=== PATIENT | female | born 1995 | race Caucasian/White ===

== ENCOUNTER → 2016-08-18 | Outpatient (REF) | payer OTHER | LOC: M SFHCWAGY 17:00 | PROVIDERS: ATTEND Nurse Practitioner Family | DX: Z01.419 Encounter for gynecological examination (general) (routine) without abnormal findings (principal) ==

== ENCOUNTER → 2016-08-19 | Outpatient (REF) | payer OTHER | LOC: M LAB REF 15:45 | PROVIDERS: ATTEND Physician Assistant | DX: J11.00 Influenza due to unidentified influenza virus with unspecified type of pneumonia (principal) ==

== ENCOUNTER → 2017-02-13 | Outpatient (REF) | payer OTHER | LOC: M SFHCWAGY 14:24 | PROVIDERS: ATTEND Family Medicine | DX: Z12.4 Encounter for screening for malignant neoplasm of cervix (principal); Z11.3 Encounter for screening for infections with a predominantly sexual mode of transmission ==

== ENCOUNTER → 2017-02-16 | Outpatient (CLI) | payer OTHER ==
[2017-02-16 17:44] LABS: MEAN CORPUSCULAR HEMOGLOBIN 31.5 pg (27.0-33.0); MEAN CORPUSCULAR VOLUME 95.4 fl (80.0-96.0); RED CELL DISTRIBUTION WIDTH 12.3 % (11.5-14.5)
[2017-02-16 18:25] LABS: ALBUMIN 3.9 GM/DL (3.2-5.2); ALBUMIN/GLOBULIN RATIO 1.26 (1.00-1.93); ALKALINE PHOSPHATASE 67 U/L (45-117); ALT/SGPT 20 U/L (12-78); ANION GAP 7 MEQ/L (8-16); AST/SGOT 10 U/L (15-37); BILIRUBIN,TOTAL 0.3 MG/DL (0.2-1.0); BLOOD UREA NITROGEN 15 MG/DL (7-18); CALCIUM LEVEL 9.1 MG/DL (8.5-10.1); CARBON DIOXIDE LEVEL 26 MEQ/L (21-32); CHLORIDE LEVEL 107 MEQ/L (98-107); CHOLESTEROL LEVEL 150 MG/DL (<200); CREATININE FOR GFR 0.72 MG/DL (0.55-1.02); GLOMERULAR FILTRATION RATE > 60.0 (>60); GLUCOSE, FASTING 87 MG/DL (70-105); POTASSIUM SERUM 4.5 MEQ/L (3.5-5.1); SODIUM LEVEL 140 MEQ/L (136-145); TRIGLYCERIDES LEVEL 39 MG/DL (<150)
== END ==
LOC: M WUC 11:15
PROVIDERS: ATTEND Nurse Practitioner Family
DX: J30.89 Other allergic rhinitis (principal); Z13.1 Encounter for screening for diabetes mellitus; Z13.220 Encounter for screening for lipoid disorders; E55.9 Vitamin D deficiency, unspecified

== ENCOUNTER → 2017-06-10 | Outpatient (REF) | payer OTHER | LOC: M SFHCLERA 13:36 | PROVIDERS: ATTEND Nurse Practitioner Family | DX: R50.9 Fever, unspecified (principal) ==

== ENCOUNTER → 2018-04-09 | Outpatient (REF) | payer OTHER ==
[2018-04-09 17:39] LABS: CHLAMYDIA DNA AMPLIFICATION NEGATIVE (NEGATIVE); GC DNA AMPLIFICATION NEGATIVE (NEGATIVE)
== END ==
LOC: M SFHCWAGY 12:06
DX: Z12.4 Encounter for screening for malignant neoplasm of cervix (principal)

== ENCOUNTER → 2018-04-22 | Outpatient (CLI) | payer OTHER | LOC: M WHC 10:54 | DX: R10.2 Pelvic and perineal pain (principal) | CPT/HCPCS: 76830 ==

== ENCOUNTER → 2018-08-19 | Outpatient (REF) | payer OTHER | LOC: M SFHCLERA 16:44 | PROVIDERS: ATTEND Nurse Practitioner Family | DX: J02.9 Acute pharyngitis, unspecified (principal) ==

== ENCOUNTER → 2019-04-18 | Outpatient (REF) | payer OTHER ==
[~2019-04-18] MED LIST: FLUTISP NARES; OXYC1TAB23 PO
[2019-04-18 18:22] LABS: CHLAMYDIA DNA AMPLIFICATION NEGATIVE (NEGATIVE); GC DNA AMPLIFICATION NEGATIVE (NEGATIVE)
[2019-04-20 14:52] LABS: HPV HYBRID CAPTURE II Negative (Negative)
== END ==
LOC: M SFHCWAGY 11:06
PROVIDERS: ATTEND Nurse Practitioner Family
DX: Z12.4 Encounter for screening for malignant neoplasm of cervix (principal); Z11.3 Encounter for screening for infections with a predominantly sexual mode of transmission; R87.610 Atypical squamous cells of undetermined significance on cytologic smear of cervix (ASC-US)

== ENCOUNTER → 2019-04-25 | Outpatient (REF) | payer OTHER ==
[2019-04-25 18:31] LABS: ALT/SGPT 23 U/L (12-78); BILIRUBIN,TOTAL 0.3 MG/DL (0.2-1.0); BLOOD UREA NITROGEN 19 MG/DL (7-18); CALCIUM LEVEL 8.8 MG/DL (8.5-10.1); CARBON DIOXIDE LEVEL 28 MEQ/L (21-32); CHLORIDE LEVEL 106 MEQ/L (98-107); CHOLESTEROL LEVEL 151 MG/DL (<200); CHOLESTEROL RISK RATIO 2.559 (<5); CREATININE FOR GFR 0.93 MG/DL (0.55-1.30); FREE T4 0.85 NG/DL (0.76-1.46); GLOMERULAR FILTRATION RATE > 60.0 (>60); GLUCOSE, FASTING 78 MG/DL (70-100); HDL CHOLESTEROL 59 MG/DL (>40); LDL CHOLESTEROL 74 MG/DL (<100); NON-HDL-C 92 MG/DL; POTASSIUM SERUM 4.2 MEQ/L (3.5-5.1); SODIUM LEVEL 140 MEQ/L (136-145); THYROID STIMULATING HORMONE 0.595 uIU/ML (0.358-3.740); TOTAL PROTEIN 7.2 GM/DL (6.4-8.2); TRIGLYCERIDES LEVEL 92 MG/DL (<150)
[2019-04-25 18:33] LABS: PTH INTACT 28.8 PG/ML (18.5-88.0); TOTAL 25(OH) VITAMIN D 18.6 NG/ML (30.0-100.0)
[2019-04-25 18:35] LABS: BASO % 0.4 % (0.0-1.0); EOS # 0.3 10^3/uL (0.0-0.5); EOS % 3.1 % (0.0-3.0); HEMATOCRIT 41.4 % (36.0-47.0); HEMOGLOBIN 13.1 g/dl (12.0-15.5); LYMPH # 2.4 10^3/uL (1.5-5.0); LYMPH % 26.9 % (24.0-44.0); MEAN CORPUSCULAR HEMOGLOBIN 30.5 pg (27.0-33.0); MEAN CORPUSCULAR HGB CONC 31.6 g/dl (32.0-36.5); MEAN CORPUSCULAR VOLUME 96.5 fl (80.0-96.0); MONO # 0.6 10^3/uL (0.0-0.8); NEUTROPHILS # 5.6 10^3/uL (1.5-8.5); NEUTROPHILS % 62.3 % (36.0-66.0); PLATELET COUNT, AUTOMATED 287 10^3/uL (150-450); RED BLOOD COUNT 4.29 10^6/uL (4.00-5.40)
== END ==
LOC: M SFHCPLAZ 15:13
PROVIDERS: ATTEND Physician Assistant Medical
DX: Z13.220 Encounter for screening for lipoid disorders (principal); J30.89 Other allergic rhinitis; E55.9 Vitamin D deficiency, unspecified; F41.1 Generalized anxiety disorder

== ENCOUNTER → 2019-05-09 | Outpatient (REF) | payer OTHER | LOC: M SFHCWAGY 10:12 | PROVIDERS: ATTEND Nurse Practitioner Family | DX: O20.9 Hemorrhage in early pregnancy, unspecified (principal) ==

== ENCOUNTER 2019-05-10 11:54 | Day surgery (SDC) | payer OTHER ==
[~2019-05-10] VITALS: Ht 152.4 cm; Wt 49.1 kg
[2019-05-10] MEDS ORDERED: FLUTISP NARES (12:00)
[2019-05-10] MEDS ORDERED: ONDANSETRON 4 MG ORAL DISINTEGRATING TAB (Q0162 PER 1MG) PO ONE (12:45)
[2019-05-10] MEDS ORDERED: NORCO, ANEXSIA 5/325MG TABLET (HYDROcodone/ACETAMINOPHEN) PO ONE (12:45)
[2019-05-10 13:12] LABS: BASO % 0.3 % (0.0-1.0); EOS # 0.2 10^3/uL (0.0-0.5); EOS % 1.8 % (0.0-3.0); HEMOGLOBIN 12.7 g/dl (12.0-15.5); LYMPH # 1.5 10^3/uL (1.5-5.0); LYMPH % 15.9 % (24.0-44.0); MEAN CORPUSCULAR HEMOGLOBIN 31.5 pg (27.0-33.0); MEAN CORPUSCULAR HGB CONC 33.4 g/dl (32.0-36.5); MEAN CORPUSCULAR VOLUME 94.3 fl (80.0-96.0); MONO # 0.7 10^3/uL (0.0-0.8); MONO % 7.4 % (0.0-5.0); NEUTROPHILS # 6.9 10^3/uL (1.5-8.5); NEUTROPHILS % 74.3 % (36.0-66.0); PLATELET COUNT, AUTOMATED 277 10^3/uL (150-450); RED BLOOD COUNT 4.03 10^6/uL (4.00-5.40); WHITE BLOOD COUNT 9.3 10^3/uL (4.0-10.0)
[2019-05-10 13:42] LABS: BLOOD UREA NITROGEN 17 MG/DL (7-18); CALCIUM LEVEL 8.9 MG/DL (8.5-10.1); CARBON DIOXIDE LEVEL 25 MEQ/L (21-32); CHLORIDE LEVEL 106 MEQ/L (98-107); CREATININE FOR GFR 0.68 MG/DL (0.55-1.30); GLOMERULAR FILTRATION RATE > 60.0 (>60); GLUCOSE, FASTING 108 MG/DL (70-100); HCG, SERUM QUANTITATIVE 466 MIU/ML; POTASSIUM SERUM 3.4 MEQ/L (3.5-5.1); SODIUM LEVEL 139 MEQ/L (136-145)
[2019-05-10] MEDS ORDERED: METOCLOPRAMIDE 10 MG TAB PO ONE (13:45)
[2019-05-10] MEDS ORDERED: SILVER NITRATE APPLICATOR As Ordered ONE (14:08)
[2019-05-10] MEDS ORDERED: LIDOCAINE 2% INJ 100 MG/5 ML SDV (FOR ANES.) As Ordered ONE (14:11)
[2019-05-10] MEDS ORDERED: PROPOFOL 200 MG/20 ML VIAL As Ordered ONE (14:11)
[2019-05-10] MEDS ORDERED: SUCCINYLCHOLINE 100 MG/5 ML SYRINGE (J0330) As Ordered ONE (14:11)
[2019-05-10] MEDS ORDERED: ROCURONIUM BROMIDE 50 MG/5 ML VIAL As Ordered ONE (14:11)
[2019-05-10] MEDS ORDERED: fentaNYL 250 MCG/5 ML INJECTION (J3010) As Ordered ONE (14:15)
[2019-05-10] MEDS ORDERED: dexameTHASONE 4 MG/ML 1ML VIAL (J1100) As Ordered ONE (14:44)
[2019-05-10] MEDS ORDERED: SUGAMMADEX SODIUM 500 MG/5 ML VIAL (BRIDION) As Ordered ONE (14:57)
[2019-05-10] MEDS ORDERED: METHYLENE BLUE 0.5% (5MG/ML) 10 ML AMP (PROVAYBLUE)(Q9968 PER 1MG) As Ordered ONE (15:19)
--- NOTE | 2019-05-10 15:27 | REP ---
FIRST TRIMESTER ULTRASOUND: Real-time sonographic evaluation of pelvis performed utilizing transabdominal and endovaginal technique. Uterus measures 7.8 x 3.2 x 5.3 cm. Uterus is empty. No gestational sac is seen. Endometrial thickness is approximately 7 mm. The right ovary measures 2.3 x 1.0 x 2.1 cm. The left ovary measures 1.8 x 2.1 x 3.0 cm. Medial to the left ovary, there is a separate structure measuring 2.0 x 2.8 x 3.5 cm. A portion appears tubular with internal complex fluid. Portion does demonstrate internal blood flow with Doppler evaluation. This is suspicious for ectopic . There is also adjacent complex fluid in the right adnexa which could represent hemorrhage. IMPRESSION: Findings highly suspicious for ruptured ectopic on the left side with suspected tubal and associated complex hemorrhagic fluid in the left tube. There is also complex fluid in the right adnexa, which I suspect represents free hemorrhagic fluid. Findings were conveyed immediately to Caitlyn Og in the ER at the time of the exam, 1:40 p.m., 05/10/2019. Electronically Signed by Benton Westfall MD 05/11/2019 12:26 P
[2019-05-10] MEDS: BUPIVACAINE HCL 0.25% 30 ML VIAL As Ordered ONE ×2 (15:30→15:31)
[2019-05-10] MEDS ORDERED: KETOROLAC 60 MG/2 ML VIAL (J1885) As Ordered ONE (15:33)
[2019-05-10] MEDS ORDERED: ONDANSETRON 4MG/2ML VIAL (J2405) As Ordered ONE (16:03)
[2019-05-10] MEDS ORDERED: oxyCODONE 5MG TAB As Ordered ONE (16:12)
[2019-05-10] MEDS ORDERED: fentaNYL 100 MCG/2 ML INJECTION (J3010) As Ordered ONE (16:15)
[2019-05-10] MEDS: fentaNYL 100 MCG/2 ML INJECTION (J3010) IV PRN ×2 (16:16→16:21)
[2019-05-10] MEDS ORDERED: KETOROLAC 30 MG/ML VIAL (J1885) IV PRN (16:30)
[2019-05-10] MEDS ORDERED: oxyCODONE 5MG TAB PO PRN (16:30)
[2019-05-10] MEDS ORDERED: LR 1,000 ML IV SCH (16:30)
[2019-05-10] MEDS ORDERED: ONDANSETRON 4MG/2ML VIAL (J2405) IV PRN (16:30)
[2019-05-10] MEDS ORDERED: OXYC1TAB23 PO (16:32)
[2019-05-10 17:35] VITALS: BP 109/59
--- NOTE | 2019-05-10 19:30 | RO ---
DATE OF PROCEDURE: 05/10/2019 PREOPERATIVE DIAGNOSES: 1. Left ruptured ectopic . 2. Pelvic adhesive disease with evidence of endometriosis. POSTOPERATIVE DIAGNOSES: 1. Left ruptured ectopic . 2. Pelvic adhesive disease with evidence of endometriosis. PROCEDURE PERFORMED: 1. Laparoscopic left salpingectomy/removal of ectopic . 2. Diagnostic laparoscopy with chromopertubation of the right fallopian tube. SURGEON: Kris Myles DO SALES FINANCIAL ANALYST: None. ANESTHESIA TYPE: General endotracheal. SPECIMENS SENT TO PATHOLOGY: Left fallopian tube with an ectopic . ESTIMATED BLOOD LOSS: 200 mL FLUIDS REPLACED: 1400 mL lactated Ringer's. DRAINS: Martínez catheter. URINE OUTPUT: 100 mL during the procedure. COMPLICATIONS: None. PREOPERATIVE ANTIBIOTICS: None indicated. INTRAOPERATIVE FINDINGS: Left ectopic with an actively bleeding fallopian tube. There was approximately 200 mL of blood in the posterior cul-de-sac, which was evacuated prior to the left salpingectomy. The patient also had evidence of endometriosis in the anterior cul-de-sac and posterior cul-de-sac. She had mild adhesive disease everywhere in the pelvis. Her left ovary was immobile, encased by scar tissue. Her right fallopian tube was also stuck to the pelvic sidewall along the broad ligament and chromopertubation revealed no evidence of hydrosalpinx and right fallopian tubal patency; I visualized spillage of methylene blue fluid out of the fimbriae INDICATION: The patient is a 24-year-old 1 at approximately 4-6 weeks gestational age by her last menstrual period, which was estimated to be around March 30, 2019. She presented to the emergency department with acute onset of abdominal pain on the left side, and her workup was significant for evidence of a left ruptured ectopic based on ultrasound findings and lab work/HCG level. Given that she was still hemodynamically stable, the decision was made to proceed to the operating room to perform surgical management/removal of this ectopic via operative laparoscopy. DESCRIPTION OF PROCEDURE: The patient was counseled and consented on the risks, benefits, indications, and alternatives of the procedure. Informed consent was obtained. She was taken to the operating room with an IV running, placed on the operating table in a dorsal supine position. General anesthesia was administered and the airway secured without any difficulty. She was placed in the low lithotomy position. She was prepared and draped in a normal sterile fashion. A time-out was performed per protocol. Attention was turned to the pelvis. A Martínez catheter was placed under sterile conditions. A sterile speculum was placed with good visualization of the cervix. The anterior lip of the cervix was grasped with a single-tooth tenaculum and downward traction was applied. The Hulka uterine manipulator was placed without any difficulty. The sterile speculum was removed. Glove switch was performed. Attention was turned to the abdomen. A 10 mm umbilical incision was made after injection of 0.25% Marcaine. Through this incision, the Veress needle was placed into the intraperitoneal cavity. Intraperitoneal placement was confirmed with ease of flow of normal saline, negative return on aspiration and a positive drop test. The abdomen was insufflated, and the opening pressure was 2 mmHg. After insufflating 2 liters of gas, the Veress needle was removed. The size 11 Xcel laparoscopic trocar was placed under direct visualization into the intraperitoneal cavity without any difficulty or incidental injury or bleeding. Then, she was placed in the steep Trendelenburg position. Attention was turned to the pelvis with findings noted above. Two additional laparoscopic port sites were placed in the left lower abdomen through 5 mm incisions and under direct laparoscopic visualization, these cannulas were placed. The suction sweet dough mixer was used to remove all the blood in the anterior cul-de-sac. After this was done, the left ectopic was easily seen. The left fallopian tube was followed out to the fimbriated end. The left fallopian tube was grasped at the fimbriated end and elevated. The underlying mesosalpinx/broad ligament was sequentially clamped, coagulated and transected with the 5 mm LigaSure device until the level of the cornu was reached. At the level of the cornu, the left fallopian tube was clamped, coagulated and transected thus amputating the left fallopian tube. The left fallopian tube was placed in the anterior cul-de-sac. The EndoCatch bag was used to remove the left fallopian tube with the ectopic in it, and this was done without any difficulty. Inspection of the surgical site revealed excellent hemostasis. A survey of the abdomen and pelvis revealed evidence of fibrosis/adhesions throughout the pelvis involving both the left and right adnexa and ovaries. The right fallopian tube was normal in appearance. However, it was adhesed to the right pelvic sidewall/broad ligament but no evidence of hydrosalpinx. The decision was made to perform chromopertubation. The hysterosalpingo catheter was placed through the cervix after removal of the Hulka tenaculum. Methylene blue dyed saline was injected into the cervix and uterus, and right tubal fill and spill was noted. Again, no hydrosalpinx and tubal fill and spill was easily delineated. The fluid was suctioned out. I performed a glove switch and attention was turned back to the abdomen. The surgical site was reinspected and noted to be hemostatic. The patient was taken out of Trendelenburg. The gas was released from the abdomen. The cannulas were removed. The umbilical fascia was closed with #0 Vicryl. The skin incisions were closed with #4-0 Monocryl in a subcuticular fashion and reinforced with Dermabond. Attention was turned back to the vagina. All instruments were removed from the vagina. This tenaculum sites were noted be hemostatic. The Martínez catheter was removed. Sponge, needle and instrument counts were correct per protocol. She was transferred to the post-anesthesia care unit (PACU) in good and stable condition. ALESHA
== END 2019-05-10 17:45 | disposition home or self-care (01) ==
LOC: M ED 11:54 → M SDC 11:55
PROVIDERS: ATTEND Obstetrics & Gynecology
DX: O00.102 Left tubal pregnancy without intrauterine pregnancy (principal); N73.6 Female pelvic peritoneal adhesions (postinfective); F17.210 Nicotine dependence, cigarettes, uncomplicated
CPT/HCPCS: 58350; 59151; 76801; 76817; 80048; 81001; 84702; 85025; 86850; 86900; 86901; 88305; 93976; 99284; J0330; J1100; J1885; J2405; J3010; Q0162; Q9968

== ENCOUNTER → 2019-08-15 | Outpatient (REF) | payer OTHER | LOC: M SFHCWAGY 10:42 | PROVIDERS: ATTEND Obstetrics & Gynecology | DX: R87.610 Atypical squamous cells of undetermined significance on cytologic smear of cervix (ASC-US) (principal) ==

== ENCOUNTER → 2019-08-31 | Outpatient (CLI) | payer OTHER ==
[2019-08-31 17:33] LABS: BASO % 0.6 % (0.0-1.0); EOS # 0.3 10^3/uL (0.0-0.5); EOS % 4.2 % (0.0-3.0); HEMATOCRIT 41.7 % (36.0-47.0); HEMOGLOBIN 13.6 g/dl (12.0-15.5); LYMPH # 1.9 10^3/uL (1.5-5.0); MEAN CORPUSCULAR HEMOGLOBIN 31.4 pg (27.0-33.0); MEAN CORPUSCULAR HGB CONC 32.6 g/dl (32.0-36.5); MEAN CORPUSCULAR VOLUME 96.3 fl (80.0-96.0); MONO # 0.5 10^3/uL (0.0-0.8); MONO % 7.8 % (0.0-5.0); NEUTROPHILS # 4.2 10^3/uL (1.5-8.5); NEUTROPHILS % 60.1 % (36.0-66.0); PLATELET COUNT, AUTOMATED 273 10^3/uL (150-450); RED BLOOD COUNT 4.33 10^6/uL (4.00-5.40); WHITE BLOOD COUNT 6.9 10^3/uL (4.0-10.0)
[2019-08-31 18:00] LABS: FERRITIN 30 NG/ML (8-252); IRON (FE) 93 UG/DL (50-170)
== END ==
LOC: M PLALAB 12:18
PROVIDERS: ATTEND Physician Assistant Medical
DX: O09.10 Supervision of pregnancy with history of ectopic pregnancy, unspecified trimester (principal); Z3A.00 Weeks of gestation of pregnancy not specified

== ENCOUNTER → 2020-05-21 | Outpatient (REF) | payer OTHER ==
[2020-05-23 09:17] LABS: CHLAMYDIA DNA AMPLIFICATION NEGATIVE (NEGATIVE); GC DNA AMPLIFICATION NEGATIVE (NEGATIVE)
== END ==
LOC: M SFHCWAGY 12:38
PROVIDERS: ATTEND Obstetrics & Gynecology
DX: Z12.4 Encounter for screening for malignant neoplasm of cervix (principal); Z87.898 Personal history of other specified conditions; Z77.9 Other contact with and (suspected) exposures hazardous to health

== ENCOUNTER → 2020-12-20 | Outpatient (CLI) | payer OTHER ==
[~2020-12-20] MED LIST changes: +ISOVUE-300 61% 50ML VIAL As Ordered ONE; +ISOVUE-370 76% 100ML VIAL As Ordered ONE
--- NOTE | 2020-12-20 13:02 | REP ---
INDICATION: FERTILITY - DR WILL SEND ORDER PER [facility]. COMPARISON: None. TECHNIQUE: The patient's cervix is catheterized by the referring clinician, who injected contrast. I performed fluoroscopic imaging. FINDINGS: Few air bubbles are seen in the uterine cavity with no other contour abnormality. There is free passage of contrast through the nondilated right fallopian tube. There is free intraperitoneal spillage indicating patency of the right fallopian tube. The left fallopian tube is not visualized. IMPRESSION: Patent right fallopian tube. 0.4 minutes fluoroscopy time utilized for the procedure. <Electronically signed by Benton Westfall > 12/20/20 [id number]
== END ==
LOC: M RADPRO 12:04
PROVIDERS: ATTEND Obstetrics & Gynecology
DX: N97.9 Female infertility, unspecified (principal)
CPT/HCPCS: 58340; 74740; Q9967

== ENCOUNTER 2021-01-04 13:27 | Emergency (ER) | payer OTHER ==
[~2021-01-04] VITALS: Ht 152.4 cm; Wt 47.2 kg
[~2021-01-04 13:27] MED LIST changes: -ISOVUE-300 61% 50ML VIAL As Ordered ONE; -ISOVUE-370 76% 100ML VIAL As Ordered ONE
[2021-01-04] MEDS ORDERED: SERT25TA85 PO (13:37)
[2021-01-04] MEDS ORDERED: ACET-683 PO (13:37)
[2021-01-04 14:27] LABS: BASO % 0.3 % (0.0-1.0); EOS % 0.1 % (0.0-3.0); HEMOGLOBIN 13.5 g/dl (12.0-15.5); LYMPH # 0.9 10^3/uL (1.5-5.0); LYMPH % 9.3 % (24.0-44.0); MEAN CORPUSCULAR HEMOGLOBIN 31.1 pg (27.0-33.0); MEAN CORPUSCULAR HGB CONC 32.9 g/dl (32.0-36.5); MEAN CORPUSCULAR VOLUME 94.5 fl (80.0-96.0); MONO # 0.4 10^3/uL (0.0-0.8); MONO % 3.4 % (2.0-8.0); NEUTROPHILS # 8.8 10^3/uL (1.5-8.5); NEUTROPHILS % 86.4 % (36.0-66.0); PLATELET COUNT, AUTOMATED 303 10^3/uL (150-450); RED BLOOD COUNT 4.34 10^6/uL (4.00-5.40); WHITE BLOOD COUNT 10.2 10^3/uL (4.0-10.0)
[2021-01-04 14:50] LABS: ALBUMIN 4.2 GM/DL (3.2-5.2); BILIRUBIN,DIRECT 0.2 MG/DL (0.0-0.2); BILIRUBIN,TOTAL 0.5 MG/DL (0.2-1.0); TOTAL PROTEIN 7.4 GM/DL (6.4-8.2)
[2021-01-04] MEDS ORDERED: ONDANSETRON 4MG/2ML VIAL IV ONE ×2 (15:45→16:55)
[2021-01-04] MEDS ORDERED: NS 1,000 ML IV ONE (15:45)
[2021-01-04 16:42] VITALS: BP 123/77
[2021-01-04] MEDS ORDERED: ZOFR4TAB16 PO (17:02)
== END 2021-01-04 17:25 | disposition home or self-care (01) ==
LOC: M ED 13:27
DX: R11.10 Vomiting, unspecified (principal); R19.7 Diarrhea, unspecified; F17.200 Nicotine dependence, unspecified, uncomplicated; Z79.899 Other long term (current) drug therapy
CPT/HCPCS: 80047; 80076; 81001; 83690; 84702; 85025; 96374; 99284; J2405

== ENCOUNTER → 2021-02-13 | Outpatient (CLI) | payer OTHER ==
[~2021-02-13] MED LIST changes: +ACET-683 PO; +SERT25TA85 PO; +ZOFR4TAB16 PO
== END ==
LOC: M PLALAB 13:21
PROVIDERS: ATTEND Obstetrics & Gynecology
DX: Z32.01 Encounter for pregnancy test, result positive (principal)

== ENCOUNTER → 2021-02-15 | Outpatient (CLI) | payer OTHER | LOC: M PLALAB 09:02 | PROVIDERS: ATTEND Obstetrics & Gynecology | DX: Z32.01 Encounter for pregnancy test, result positive (principal) ==

== ENCOUNTER → 2021-03-07 | Outpatient (CLI) | payer OTHER ==
[2021-03-07 15:46] LABS: HEMOGLOBIN 12.5 g/dl (12.0-15.5); MEAN CORPUSCULAR HGB CONC 32.9 g/dl (32.0-36.5); MEAN CORPUSCULAR VOLUME 94.3 fl (80.0-96.0); PLATELET COUNT, AUTOMATED 283 10^3/uL (150-450); RED BLOOD COUNT 4.03 10^6/uL (4.00-5.40); WHITE BLOOD COUNT 8.9 10^3/uL (4.0-10.0)
[2021-03-07 17:04] LABS: HEPATITIS C VIRUS ABY INDEX < 0.0 INDEX (<0.8); HIV 1&2 SCREEN CENTAUR NEGATIVE (NEGATIVE)
[2021-03-07 17:37] LABS: GC DNA AMPLIFICATION NEGATIVE (NEGATIVE)
== END ==
LOC: M PLALAB 12:54
PROVIDERS: ATTEND Obstetrics & Gynecology
DX: Z34.80 Encounter for supervision of other normal pregnancy, unspecified trimester (principal)

== ENCOUNTER → 2021-03-20 | Outpatient (REF) | payer OTHER | LOC: M SFHCWAGY 10:37 | PROVIDERS: ATTEND Advanced Practice Midwife | DX: O09.11 Supervision of pregnancy with history of ectopic pregnancy, first trimester (principal) ==

== ENCOUNTER → 2021-03-28 | Outpatient (CLI) | payer OTHER | LOC: M PLALAB 09:41 | PROVIDERS: ATTEND Advanced Practice Midwife | DX: Z34.81 Encounter for supervision of other normal pregnancy, first trimester (principal); Z36.89 Encounter for other specified antenatal screening ==

== ENCOUNTER → 2021-05-16 | Outpatient (CLI) | payer OTHER ==
--- NOTE | 2021-05-24 12:27 | REPVR ---
PROCEDURE INFORMATION: Exam: US After First Trimester, Transabdominal Exam date and time: 05/16/2021 11:53 AM Age: 26 years old Clinical indication: Lmp or gestational age (in weeks): 19w 4d; Other: Anatomy scan; TECHNIQUE: Imaging protocol: Real-time transabdominal obstetrical ultrasound of the maternal pelvis and a second or third trimester with image documentation. COMPARISON: PELVIS NON-OB COMPLETE US 04/22/2018 11:03 AM FINDINGS: Other findings: MATERNAL ANATOMY: Gestation: Single viable intrauterine gestation. heart rate: heart rate is 152 bpm. presentation: Cephalic presentation Placenta: Anterior placenta. Amniotic fluid: Amniotic fluid is normal for gestational age. ANATOMY: midline falx: Normal cerebellum: Normal lateral ventricles: Normal cisterna magna: Normal choroid plexus: Normal upper lip and nose: Normal heart four-chamber view, heart size and position: Normal kidneys: Normal stomach: Normal stomach. urinary bladder: Normal urinary bladder. spine: Normal Umbilical cord insertion site into the abdomen: Cord insertion site is normal. Umbilical cord vessel number: Three-vessel umbilical cord. arms and hands: Normal legs and feet: Normal external genitalia: Normal BIOMETRY: Estimated due date (AUA): Estimated date of delivery 10/11/2019. Gestational age (AUA): Sonographically estimated gestational age is 19 weeks 4 days. Estimated weight: Estimated weight is 305 g. Estimated weight percentile: 82nd percentile Biparietal diameter (BPD): 4.5 cm Head circumference (HC): 16.3 cm Femur length (FL): 3.2 cm MATERNAL: Uterus: Unremarkable. Cervix: Cervical length is 3.7 cm. Right adnexa: Ovary is obscured by overlying bowel gas. Left adnexa: Ovary is obscured by overlying bowel gas. IMPRESSION: Single viable intrauterine gestation 19 weeks 4 days of age. Electronically signed by: Abhinav Duarte On 05/18/2021 10:48:07 AM
== END ==
LOC: M WHC 11:24
PROVIDERS: ATTEND Advanced Practice Midwife
DX: O09.12 Supervision of pregnancy with history of ectopic pregnancy, second trimester (principal); Z3A.19 19 weeks gestation of pregnancy

== ENCOUNTER → 2021-07-04 | Outpatient (CLI) | payer OTHER ==
[~2021-07-04] MED LIST changes: +COLA100C5 PO; +IBUP-1022 PO; +OMEP10CASR PO; +PRENTAB9 PO
[2021-07-04 13:31] LABS: HEMATOCRIT 35.3 % (36.0-47.0); HEMOGLOBIN 11.6 g/dl (12.0-15.5); MEAN CORPUSCULAR HGB CONC 32.9 g/dl (32.0-36.5); MEAN CORPUSCULAR VOLUME 97.2 fl (80.0-96.0); PLATELET COUNT, AUTOMATED 243 10^3/uL (150-450); RED BLOOD COUNT 3.63 10^6/uL (4.00-5.40); WHITE BLOOD COUNT 10.7 10^3/uL (4.0-10.0)
[2021-07-04 15:26] LABS: GC DNA AMPLIFICATION NEGATIVE (NEGATIVE)
== END ==
LOC: M PLALAB 10:57
PROVIDERS: ATTEND Obstetrics & Gynecology
DX: O99.619 Diseases of the digestive system complicating pregnancy, unspecified trimester (principal); K21.9 Gastro-esophageal reflux disease without esophagitis

== ENCOUNTER → 2021-08-22 | Outpatient (REF) | payer OTHER ==
[~2021-08-22] MED LIST changes: -COLA100C5 PO; -IBUP-1022 PO; -OMEP10CASR PO; -PRENTAB9 PO
== END ==
LOC: M PLALAB 08:40
PROVIDERS: ATTEND Advanced Practice Midwife
DX: O99.343 Other mental disorders complicating pregnancy, third trimester (principal)

== ENCOUNTER → 2022-04-28 | Outpatient (REF) | payer OTHER ==
[~2022-04-28] MED LIST changes: +COLA100C5 PO; +IBUP-1022 PO; +OMEP10CASR PO; +PRENTAB9 PO
== END ==
LOC: M SFHCWAGY 15:22
PROVIDERS: ATTEND Advanced Practice Midwife
DX: Z12.4 Encounter for screening for malignant neoplasm of cervix (principal)

== ENCOUNTER → 2023-05-18 | Outpatient (REF) | payer OTHER ==
[~2023-05-18] MED LIST changes: +FLUT50SP17 NARES; -FLUTISP NARES
== END ==
LOC: M SFHCWAGY 12:56
PROVIDERS: ATTEND Advanced Practice Midwife
DX: Z12.4 Encounter for screening for malignant neoplasm of cervix (principal)

== ENCOUNTER → 2024-03-23 | Outpatient (CLI) | payer OTHER ==
[~2024-03-23] MED LIST changes: -FLUT50SP17 NARES; +FLUTISP NARES
== END ==
LOC: M RAD 07:20
PROVIDERS: ATTEND Physician Assistant Medical
DX: E04.9 Nontoxic goiter, unspecified (principal)

== ENCOUNTER → 2024-07-25 | Outpatient (REF) | payer OTHER | LOC: M SFHCWAGY 17:34 | PROVIDERS: ATTEND Advanced Practice Midwife | DX: Z12.4 Encounter for screening for malignant neoplasm of cervix (principal) ==